=== PATIENT | female | born 1970 | race Caucasian/White ===

== ENCOUNTER 2021-05-08 16:12 | Emergency (ER) | payer OTHER ==
[2021-05-08] MEDS ORDERED: ASPIRIN 81 MG CHEWABLE TABLET ONE (17:50)
[2021-05-08] MEDS ORDERED: ACETAMINOPHEN 500 MG TAB ONE (17:50)
[2021-05-08] MEDS ORDERED: ALBUTEROL INHALER 60 PUFF/8 GM IH ONE (17:51)
[2021-05-08] MEDS ORDERED: CEFTRIAXONE/SWI 1gm 1 GM/10 ML SYR ONE (17:51)
[2021-05-08] MEDS ORDERED: FAMOTIDINE 20 MG/2 ML VIAL IV ONE (17:51)
[2021-05-08] MEDS ORDERED: dexAMETHasone 10 MG/ML VIAL ONE (17:51)
[2021-05-08] MEDS ORDERED: NA CHLORIDE 0.9% 1,000 ML ONE (17:51)
[2021-05-08 18:04] LABS: Absolute Lymphocytes (CBC) 0.9 K/uL (0.7-4.9); Basophils % 0.3 % (0-1.3); Lymphocytes % 23.8 % (15.3-44.8); Protime INR 1.09
[2021-05-08] MEDS ORDERED: ONDANSETRON 4 MG/2 ML VIAL ONE (18:16)
--- NOTE | 2021-05-08 18:33 | RAD REPORT ---
EXAM DESCRIPTION: CT - Chest Angio - 05/08/2021 6:08 pm CLINICAL HISTORY: Cough COMPARISON: None. TECHNIQUE: Dynamically enhanced axial 3 mm thick images of the chest were obtained during administra tion of <100> mL Isovue 370 IV contrast. Coronal and oblique reconstruction images were generated and reviewed. Exam utilizes a protocol for optimal evaluation of pulmonary arterial tree. Maximum intensity projections 3D imaging was utilized All CT scans are performed using dose optimization technique as appropriate and may include automated exposure control or mA/KV adjustment according to patient size. FINDINGS: The opacification of the peripheral pulmonary arteries is somewhat limited. Pulmonary embo murray is not seen A thoracic aortic aneurysm is not noted. A pleural effusion is not seen. A pericardial effusion is not seen. A lung consolidation is not present. IMPRESSION: Negative for a pulmonary embolism.
--- NOTE | 2021-05-08 18:34 | RAD REPORT ---
[facility] 5[facility]50 pm CLINICAL HISTORY: Chest pain COMPARISON: none FINDINGS: A few areas subsegmental atelectasis are present within the lung bases. Otherwise, lungs are clear. Heart is normal size
--- NOTE | 2021-05-08 18:43 | ER ---
Nurse's Notes [facility] Name: Karin Curtis Age: 50 yrs Sex: Female : 1970 Arrival Date: 05/08/2021 Time: 16:17 Bed 19 Private MD: MARIA TERESA MAO Diagnosis: Bronchitis, not specified as acute or chronic;Acute upper respiratory infection, unspecified Presentation: 05/08 16:26 Chief complaint: Patient states: Cough, SOB, fatigue for 5 days. Some nausea. States ll1 she doesn't usually run fever. Coronavirus screen: Client denies travel out of the [place] in the last 14 days. chills, congestion, cough unrelated to allergies, difficulty breathing, fatigue, fever, headache, muscle pain, nausea, runny nose, shaking with chills, shortness of breath, sore throat, Client presents with at least one sign or symptom that may indicate coronavirus-19. Standard/surgical mask placed on the client. Ebola Screen: Patient denies travel to an Ebola-affected area in the 21 days before illness onset. Initial Sepsis Screen: Does the patient meet any 2 criteria? HR > 90 bpm. No. Patient's initial sepsis screen is negative. Does the patient have a suspected source of infection? Yes: Productive cough/pneumonia. Risk Assessment: Do you want to hurt yourself or someone else? Patient reports no desire to harm self or others. Onset of symptoms was May 03, 2021. 16:26 Method Of Arrival: Wheelchair ll1 16:26 Acuity: FCO 3 ll1 Triage Assessment: 16:40 Respiratory: Onset: The symptoms/episode began/occurred x 5 days, the patient has mild rb3 shortness of breath. Historical: - Allergies: 16:31 "unknown antibiotic"; ll1 - PMHx: 16:31 Hypertension; guillain barre; ll1 - PSHx: 16:31 Cholecystectomy; Tubal ligation; ll1 - Immunization history:: Client reports having NOT received the Covid vaccine. Flu vaccine is not up to date. - Social history:: Smoking status: Patient denies any tobacco usage or history of. Screenin:40 Abuse screen: Denies threats or abuse. Nutritional screening: No deficits noted. rb3 Tuberculosis screening: No symptoms or risk factors identified. Fall Risk None identified. Assessment: 16:40 General: Appears in no apparent distress. comfortable, Behavior is calm, cooperative, rb3 Reports fever for feeling ill for x 5 days. Pain: Denies pain. Neuro: Level of Consciousness is awake, alert, obeys commands, Oriented to person, place, time, situation. Cardiovascular: Patient's skin is warm and dry. Respiratory: Reports shortness of breath cough that is productive, Airway is patent Respiratory effort is even, unlabored, Respiratory pattern is regular, symmetrical. GI: Reports nausea. : No signs and/or symptoms were reported regarding the genitourinary system. 17:40 Reassessment: Patient appears in no apparent distress at this time. Patient and/or rb3 family updated on plan of care and expected duration. Pain level reassessed. Patient is alert, oriented x 3, equal unlabored respirations, skin warm/dry/pink. 18:37 Reassessment: Patient appears in no apparent distress at this time. No changes from rb3 previously documented assessment. Vital Signs: 16:26 BP 148 / 95; Pulse 107; Resp 20; Temp 100.1; Pulse Ox 97% on R/A; Weight 111.13 kg; ll1 Height 5 ft. 9 in. (175.26 cm); Pain 8/10; 17:40 BP 145 / 92; Pulse 97; Resp 17; Pulse Ox 99% ; rb3 18:37 BP 141 / 90; Pulse 78; Resp 19; Pulse Ox 97% ; rb3 16:26 Body Mass Index 36.18 (111.13 kg, 175.26 cm) ll1 ED Course: 16:17 Patient arrived in ED. am2 16:18 MARIA TERESA MAO is Private Physician. am2 16:28 Triage completed. ll1 16:32 Arm band placed on. ll1 16:37 Paul Chauhan MD is Attending Physician. patricia 16:40 Patient has correct armband on for positive identification. Bed in low position. Call rb3 light in reach. Side rails up X 1. Pulse ox on. NIBP on. 17:24 Ying Munoz, RN is Primary Nurse. rb3 17:30 First set of blood cultures drawn by ny. Inserted saline lock: 20 gauge in right dh3 antecubital area, using aseptic technique. Blood collected. 17:35 Initial lab(s) drawn, by me, sent to lab. Second set of blood cultures drawn by me. dh3 17:49 XRAY Chest (1 view) In Process Unspecified. EDMS 18:07 CT Chest Angio In Process Unspecified. EDMS 18:40 EKG done, by ED staff, reviewed by Paul Chauhan MD. dh3 18:43 MARIA TERESA MAO is Referral Physician. patricia 18:43 Krishan Rodriguez MD is Referral Physician. [facility] 18:55 No provider procedures requiring assistance completed. IV discontinued, intact, rb3 bleeding controlled, No redness/swelling at site. Pressure dressing applied. Administered Medications: 17:40 Drug: NS 0.9% 1000 ml Route: IV; Rate: 1 bolus; Site: right antecubital; rb3 18:43 Follow up: IV Status: Completed infusion rb3 17:40 Drug: Decadron - Dexamethasone 10 mg Route: IVP; Site: right antecubital; rb3 18:00 Follow up: Response: No adverse reaction rb3 17:40 Drug: Albuterol HFA Inhaler 4 puffs Route: Inhalation; rb3 17:40 Drug: Pepcid (famotidine) 20 mg Route: IVP; Site: right antecubital; rb3 18:00 Follow up: Response: No adverse reaction rb3 17:40 Drug: Rocephin (cefTRIAXone) 1 grams Route: IV; Rate: per protocol; Site: right rb3 antecubital; 17:40 Drug: Tylenol 1000 mg Route: PO; rb3 18:30 Follow up: Response: No adverse reaction; Temperature is decreased rb3 17:40 Drug: Aspirin Chewable Tablet 162 mg Route: PO; rb3 18:15 Follow up: Response: No adverse reaction rb3 17:57 Drug: Zofran (Ondansetron) 4 mg Route: IVP; Site: right antecubital; rb3 18:15 Follow up: Response: No adverse reaction rb3 18:47 Not Given (Other Intervention Used): Zithromax (azithromycin) 500 mg IVPB once over 1 iw hrs; mix in 250 mL NS 18:50 Drug: Zithromax (azithromycin) 500 mg Route: PO; rb3 18:55 Follow up: Response: Medication administered at discharge. rb3 Outcome: 18:43 Discharge ordered by . patricia 18:55 Discharged to home ambulatory. rb3 18:55 Condition: stable 18:55 Discharge instructions given to patient, Instructed on discharge instructions, follow up and referral plans. medication usage, Demonstrated understanding of instructions, follow-up care, medications, Prescriptions given X 4. 19:02 Patient left the ED. rb3 Signatures: Dispatcher [employer] EDPaul Chávez MD MD cha Moreno, Amanda am2 Herrera, Deanna 3 Danny Bernal RN RN ll1 Ying Munoz RN RN rb3 Andree Reyes RN iw
--- NOTE | 2021-05-08 18:44 | EDPHYS ---
Physician Documentation [facility] Name: Karin Curtis Age: 50 yrs Sex: Female : 1970 Arrival Date: 05/08/2021 Time: 16:17 Bed 19 Private MD: MARIA TERESA MAO ED Physician Paul Chauhan HPI: 05/08 17:13 This 50 yrs old Female presents to ER via Wheelchair with complaints of patricia Cough, Breathing Difficulty. 17:13 The patient or guardian reports cough, difficulty breathing, flu symptoms, arthralgias, patricia low-grade fever, myalgias. Onset: The symptoms/episode began/occurred 5 day(s) ago. Severity of symptoms: At their worst the symptoms were mild, moderate, in the emergency department the symptoms are unchanged. Modifying factors: The symptoms are alleviated by nothing. Associated signs and symptoms: Pertinent positives: chest pain, fever, sore throat. The patient has experienced similar episodes in the past, a few times. Historical: - Allergies: 16:31 "unknown antibiotic"; ll1 - PMHx: 16:31 Hypertension; guillain barre; ll1 - PSHx: 16:31 Cholecystectomy; Tubal ligation; ll1 - Immunization history:: Client reports having NOT received the Covid vaccine. Flu vaccine is not up to date. - Social history:: Smoking status: Patient denies any tobacco usage or history of. ROS: 17:14 Eyes: Negative for injury, pain, redness, and discharge, ENT: Negative for injury, patricia pain, and discharge, Neck: Negative for injury, pain, and swelling, Abdomen/GI: Negative for abdominal pain, nausea, vomiting, diarrhea, and constipation, Back: Negative for injury and pain, : Negative for injury, bleeding, discharge, and swelling, MS/Extremity: Negative for injury and deformity, Skin: Negative for injury, rash, and discoloration, Neuro: Negative for headache, weakness, numbness, tingling, and seizure. 17:14 Constitutional: Positive for chills, fatigue, fever, malaise. 17:14 Respiratory: Positive for cough, shortness of breath, wheezing, expiratory. 17:14 Neuro: Positive for weakness. Exam: 17:14 Constitutional: This is a well developed, well nourished patient who is awake, alert, patricia and in no acute distress. Head/Face: Normocephalic, atraumatic. Eyes: Pupils equal round and reactive to light, extra-ocular motions intact. Lids and lashes normal. Conjunctiva and sclera are non-icteric and not injected. Cornea within normal limits. Periorbital areas with no swelling, redness, or edema. ENT: Nares patent. No nasal discharge, no septal abnormalities noted. Tympanic membranes are normal and external auditory canals are clear. Oropharynx with no redness, swelling, or masses, exudates, or evidence of obstruction, uvula midline. Mucous membranes moist. Neck: Trachea midline, no thyromegaly or masses palpated, and no cervical lymphadenopathy. Supple, full range of motion without nuchal rigidity, or vertebral point tenderness. No Meningismus. Chest/axilla: Normal chest wall appearance and motion. Nontender with no deformity. No lesions are appreciated. Abdomen/GI: Soft, non-tender, with normal bowel sounds. No distension or tympany. No guarding or rebound. No evidence of tenderness throughout. Back: No spinal tenderness. No costovertebral tenderness. Full range of motion. Female : Normal external genitalia. Skin: Warm, dry with normal turgor. Normal color with no rashes, no lesions, and no evidence of cellulitis. MS/ Extremity: Pulses equal, no cyanosis. Neurovascular intact. Full, normal range of motion. Neuro: Awake and alert, GCS 15, oriented to person, place, time, and situation. Cranial nerves II-XII grossly intact. Motor strength 5/5 in all extremities. Sensory grossly intact. Cerebellar exam normal. Normal gait. Psych: Awake, alert, with orientation to person, place and time. Behavior, mood, and affect are within normal limits. 17:14 Cardiovascular: Rate: tachycardic, Rhythm: regular, Pulses: Pulses are 4+ in bilateral radial, brachial, femoral, popliteal, posterior tibial and and dorsalis pedis arteries.. Heart sounds: normal, normal S1and S2, no S3 or S4, no murmur, no rub, no gallop, Edema: is not appreciated, JVD: is not appreciated. 18:43 ECG was reviewed by the Attending Physician. [facility] 18:46 ECG was reviewed by the Attending Physician. [facility] Vital Signs: 16:26 BP 148 / 95; Pulse 107; Resp 20; Temp 100.1; Pulse Ox 97% on R/A; Weight 111.13 kg; ll1 Height 5 ft. 9 in. (175.26 cm); Pain 8/10; 17:40 BP 145 / 92; Pulse 97; Resp 17; Pulse Ox 99% ; rb3 18:37 BP 141 / 90; Pulse 78; Resp 19; Pulse Ox 97% ; rb3 16:26 Body Mass Index 36.18 (111.13 kg, 175.26 cm) ll1 MDM: 16:37 Patient medically screened. [facility] 17:16 Differential diagnosis: viral Infection, bacterial infection, URI, bronchitis, patricia pneumonia UTI. Differential Diagnosis: Obstructed Airway Bronchitis Influenza Upper Respiratory Infection Sinusitis Pharyngitis Asthma Exacerbation Viral Syndrome Pneumonia. Data reviewed: vital signs, nurses notes, lab test result(s), EKG, radiologic studies, CT scan, plain films. 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 Test interpretation: by ED physician or midlevel provider: ECG, plain radiologic studies. Counseling: I had a detailed discussion with the patient and/or guardian regarding: the historical points, exam findings, and any diagnostic results supporting the discharge/admit diagnosis, lab results, radiology results, the need for further work-up and treatment in the hospital. 05/08 17:13 Order name: Basic Metabolic Panel [facility] 05/08 17:13 Order name: CBC with Diff [facility] 05/08 17:13 Order name: LFT's [facility] 05/08 17:13 Order name: Magnesium [facility] 05/08 17:13 Order name: NT PRO-BNP [facility] 05/08 17:13 Order name: PT-INR [facility] 05/08 17:13 Order name: Troponin (emerg Dept Use Only) [facility] 05/08 17:13 Order name: Blood Culture Adult (2) [facility] 05/08 17:13 Order name: Lactate; Complete Time: 18:19 [facility] 05/08 17:13 Order name: Procalcitonin [facility] 05/08 17:13 Order name: Flu [facility] 05/08 17:13 Order name: Strep; Complete Time: 18:42 [facility] 05/08 17:13 Order name: Ferritin [facility] 05/08 17:13 Order name: XRAY Chest (1 view); Complete Time: 18:42 [facility] 05/08 17:13 Order name: CRP [facility] 05/08 17:13 Order name: CT Chest Angio; Complete Time: 18:42 [facility] 05/08 17:13 Order name: Basic Metabolic Panel [facility] 05/08 17:13 Order name: CBC with Automated Diff; Complete Time: 18:19 [facility] 05/08 17:13 Order name: Liver (Hepatic) Function [facility] 05/08 17:13 Order name: Magnesium [facility] 05/08 17:13 Order name: NT PRO-BNP [facility] 05/08 17:13 Order name: Protime (+INR); Complete Time: 18:19 [facility] 05/08 17:13 Order name: Troponin (Emerg Dept Use Only) [facility] 05/08 17:13 Order name: Blood Culture [facility] 05/08 18:02 Order name: INCENTIVE SPIROMETRY [facility] 05/08 18:40 Order name: Throat Culture [facility] 05/08 17:13 Order name: EKG; Complete Time: 17:14 [facility] 05/08 17:13 Order name: Cardiac monitoring; Complete Time: 19:23 [facility] 05/08 17:13 Order name: EKG - Nurse/Tech; Complete Time: 18:41 [facility] 05/08 17:13 Order name: IV Saline Lock; Complete Time: 17:42 [facility] 05/08 17:13 Order name: Labs collected and sent; Complete Time: 17:42 [facility] 05/08 17:13 Order name: O2 Per Protocol; Complete Time: 17:42 [facility] 05/08 17:13 Order name: O2 Sat Monitoring; Complete Time: 17:42 [facility] EC:46 Rate is 92 beats/min. Rhythm is regular. QRS [place] is Normal. [place] interval is normal. QRS patricia interval is normal. QT interval is prolonged at 472 msec. No Q waves. T waves are Normal. No ST changes noted. Clinical impression: NSR w/ Non-specific ST/T Changes and No evidence of ischemia. Interpreted by me. Reviewed by me. Administered Medications: 17:40 Drug: NS 0.9% 1000 ml Route: IV; Rate: 1 bolus; Site: right antecubital; rb3 18:43 Follow up: IV Status: Completed infusion rb3 17:40 Drug: Decadron - Dexamethasone 10 mg Route: IVP; Site: right antecubital; rb3 18:00 Follow up: Response: No adverse reaction rb3 17:40 Drug: Albuterol HFA Inhaler 4 puffs Route: Inhalation; rb3 17:40 Drug: Pepcid (famotidine) 20 mg Route: IVP; Site: right antecubital; rb3 18:00 Follow up: Response: No adverse reaction rb3 17:40 Drug: Rocephin (cefTRIAXone) 1 grams Route: IV; Rate: per protocol; Site: right rb3 antecubital; 17:40 Drug: Tylenol 1000 mg Route: PO; rb3 18:30 Follow up: Response: No adverse reaction; Temperature is decreased rb3 17:40 Drug: Aspirin Chewable Tablet 162 mg Route: PO; rb3 18:15 Follow up: Response: No adverse reaction rb3 17:57 Drug: Zofran (Ondansetron) 4 mg Route: IVP; Site: right antecubital; rb3 18:15 Follow up: Response: No adverse reaction rb3 18:47 Not Given (Other Intervention Used): Zithromax (azithromycin) 500 mg IVPB once over 1 iw hrs; mix in 250 mL NS 18:50 Drug: Zithromax (azithromycin) 500 mg Route: PO; rb3 18:55 Follow up: Response: Medication administered at discharge. rb3 Disposition: 05/08/21 18:43 Discharged to Home. Impression: Bronchitis, not specified as acute or chronic, Acute upper respiratory infection, unspecified. - Condition is Stable. - Discharge Instructions: Acute Bronchitis, Adult, Upper Respiratory Infection, Adult, Cool Mist Vaporizer, Upper Respiratory Infection, Adult, Kurx-us-Vcam, Cough, Adult, Ltiz-ky-Fkzz, Aspirin and Your Heart, Cough, Adult. - Prescriptions for dexamethasone 2 mg Oral tablet - take 1 tablet by ORAL route 3 times per day; 15 tablet. Pepcid 20 mg Oral Tablet - take 1 tablet by ORAL route every 12 hours for 10 days; 20 tablet. Albuterol Sulfate 90 mcg/actuation Inhalation - inhale 2 puff by INHALATION route every 4-6 hours; 1 Inhaler. Zithromax 500 mg Oral Tablet - take 1 tablet by ORAL route once daily for 4 days; 4 tablet. - Medication Reconciliation Form, Thank You Letter, Antibiotic Education, Prescription Opioid Use form. - Follow up: MARIA TERESA MAO; When: 2 - 3 days; Reason: Recheck today's complaints, Continuance of care, Re-evaluation by your physician. Follow up: Krishan Rodriguez MD; When: 2 - 3 days; Reason: Recheck today's complaints, Continuance of care, Re-evaluation by your physician. - Problem is new. - Symptoms have improved. Signatures: Dispatcher [employer] [facility] Paul Chauhan MD MD cha Williams, Irene, RN RN iw Danny Bernal RN RN ll1 Ying Munoz RN RN rb3 Corrections: (The following items were deleted from the chart) 18:18 17:14 CORONAVIRUS+MR.LAB.BRZ ordered. [facility] 18:47 18:43 Rate is 92 beats/min. Rhythm is regular. QRS [place] is Normal. [place] interval is patricia normal. QRS interval is normal. QT interval is normal. No Q waves. T waves are Normal. No ST changes noted. Clinical impression: NSR w/ Non-specific ST/T Changes and No evidence of ischemia. Interpreted by me. Reviewed by me. [facility] 19:02 18:43 05/08/2021 18:43 Discharged to Home. Impression: Bronchitis, not specified as rb3 acute or chronic; Acute upper respiratory infection, unspecified. Condition is Stable. Discharge Instructions: Acute Bronchitis, Adult, Upper Respiratory Infection, Adult, Cool Mist Vaporizer, Upper Respiratory Infection, Adult, [id number], Cough, Adult, Caft-nq-Xnlb, Aspirin and Your Heart, Cough, Adult. Prescriptions for dexamethasone 2 mg Oral tablet - take 1 tablet by ORAL route 3 times per day; 15 tablet, Pepcid 20 mg Oral Tablet - take 1 tablet by ORAL route every 12 hours for 10 days; 20 tablet, Albuterol Sulfate 90 mcg/actuation Inhalation - inhale 2 puff by INHALATION route every 4-6 hours; 1 Inhaler, Zithromax 500 mg Oral Tablet - take 1 tablet by ORAL route once daily for 4 days; 4 tablet. and Forms are Medication Reconciliation Form, Thank You Letter, Antibiotic Education, Prescription Opioid Use. Follow up: MARIA TERESA MAO; When: 2 - 3 days; Reason: Recheck today's complaints, Continuance of care, Re-evaluation by your physician. Follow up: Krishan Rodriguez; When: 2 - 3 days; Reason: Recheck today's complaints, Continuance of care, Re-evaluation by your physician. Problem is new. Symptoms have improved. patricia
[2021-05-08 18:48] LABS: ALT/SGPT 16 U/L (12-78); AST/SGOT 15 U/L (15-37); Albumin 3.9 g/dL (3.4-5.0); Alkaline Phosphatase 72 U/L (45-117); BUN Blood Urea Nitrogen 7 mg/dL (7-18); Bicarbonate 26 mmol/L (21-32); Bilirubin Direct 0.1 mg/dL (0-0.2); Bilirubin Total 0.4 mg/dL (0.2-1.0); Glucose Level 98 mg/dL (74-106); Magnesium 2.1 mg/dL (1.8-2.4); NT PRO-BNP 71 pg/mL (<125); Potassium 3.3 mmol/L (3.5-5.1); Protein, Total 8.6 g/dL (6.4-8.2); Sodium Level 140 mmol/L (136-145); Troponin (Emerg Dept Use Only) < 0.02 ng/mL (0.0-0.045)
[2021-05-08 18:51] LABS: Ferritin 155.7 ng/mL (8-388)
[2021-05-08 19:10] VITALS: TEMP 100.1
[2021-05-08] MEDS ORDERED: AZITHROMYCIN 250 MG TAB ONE (19:10)
[2021-05-08 19:15] VITALS: BP 141/90; O2SAT 97
--- NOTE | 2021-05-09 15:49 | EKG ---
Test Date: 2021-05-08 Test Time: 18:37:12 [employer] Machine: [place] MEASUREMENT RESULTS: Intervals: Rate: 92 CA: 146 QRSD: 76 QT: 472 QTc: 583 [place]: P: 39 CA: 146 QRS: 6 T: 35 INTERPRETIVE STATEMENTS: Normal sinus rhythm Possible Left atrial enlargement Anterior infarct, age undetermined Prolonged QT Abnormal ECG No previous ECG available for comparison Electronically Signed On 05-09-21 15:47:09 CDT by Humberto Silverman
== END 2021-05-08 19:02 | disposition home or self-care (01) ==
LOC: ER 16:12
DX: J40 Bronchitis, not specified as acute or chronic (principal); J06.9 Acute upper respiratory infection, unspecified; Z20.822 Contact with and (suspected) exposure to COVID-19; I10 Essential (primary) hypertension
CPT/HCPCS: 93005; 87040 ×2; 87070; 85025; 80048; 36415; 83735; 85610; 80076; 87081; 83605; 84484; 82728; 84145; 83880; 86140; 87804 ×2; 71275; 71045; U0003; Q9967; J1100; J0696; J7030; J2405; 96361; 96374; 96375; 99284